=== PATIENT | female | born 1995 | race Two or more races ===

== ENCOUNTER 2021-04-27 15:42 | Emergency (ER) | payer MEDICAID ==
[~2021-04-27] VITALS: Ht 167.6 cm; Wt 124.7 kg
[2021-04-27 17:16] VITALS: BP 132/81
== END 2021-04-27 18:14 | disposition home or self-care (01) ==
LOC: ER 15:42
DX: L23.9 Allergic contact dermatitis, unspecified cause (principal); G43.909 Migraine, unspecified, not intractable, without status migrainosus; Z90.89 Acquired absence of other organs; Z88.1 Allergy status to other antibiotic agents
CPT/HCPCS: 36415; 85025